=== PATIENT | male | born 1995 | race Caucasian/White ===

== ENCOUNTER 2016-08-23 14:58 | Inpatient (IN) | payer OTHER ==
[~2016-08-23] VITALS: Ht 172.7 cm; Wt 62.5 kg
[2016-08-23 17:48] VITALS: Ht 172.7 cm; Wt 62.5 kg
[2016-08-23 18:01] VITALS: BP 140/79; PULSE 80; RESP 18
[2016-08-23] MEDS ORDERED: morphine 2 MG INJ IV PRN (19:00)
[2016-08-23] MEDS ORDERED: ACETAMINOPHEN 325 MG TAB PO PRN (19:00)
[2016-08-23] MEDS ORDERED: ONDANSETRON 4 MG INJ IV PRN (19:00)
--- NOTE | 2016-08-23 19:35 | QN ---
Documentation Comment SBO ABD PAIN PLAN PER CPOE NOHEMI PITTS MD Aug 23, 2016 19:35
[2016-08-23 20:00] VITALS: BP 130/61; PULSE 101; RESP 20
[2016-08-23] MEDS: DEXTROSE 5%-0.9% NACL 1,000 ML IV SCH (20:25)
[2016-08-23] MEDS: CEFTRIAXONE 1 GM/50 ML (PMX) 50 ML IVPB SCH (20:28)
[2016-08-23 21:02] VITALS: BP 130/61; RESP 20
[2016-08-24] MEDS: DEXTROSE 5%-0.9% NACL 1,000 ML IV SCH ×4 (05:34→23:49)
[2016-08-24 06:15] LABS: POTASSIUM 3.6 mmol/L (3.5-5.1)
[2016-08-24 06:18] LABS: CREATININE 0.94 mg/dl (0.61-1.24)
[2016-08-24 06:19] LABS: CALCIUM 8.6 mg/dl (8.4-10.2)
[2016-08-24] MEDS: PANTOPRAZOLE 40 MG INJ IV SCH (06:27)
[2016-08-24 06:36] LABS: BASOPHILS % 0.1 % (0.0-2.0); EOSINOPHILS # 0.2 10^3/ul (0.0-0.5); EOSINOPHILS % 2.5 % (0.0-7.0); HEMATOCRIT 41.3 % (42.0-52.0); HEMOGLOBIN 14.2 g/dl (14.0-18.0); LYMPHOCYTES % 15.4 % (15.0-51.0); MEAN CORPUSCULAR HGB CONC 34.3 g/dl (32.0-37.0); MEAN CORPUSCULAR VOLUME 87.5 fl (82.0-101.0); MONOCYTE # 0.4 10^3/ul (0.3-0.9); MONOCYTES % 6.3 % (0.0-11.0); NEUTROPHIL # 4.8 10^3/ul (1.6-7.5); NEUTROPHILS % 75.7 % (39.0-77.0); PLATELET COUNT 165 10^3/UL (140-440); RED BLOOD COUNT 4.72 10^6/ul (4.70-6.10); RED CELL DISTRIBUTION WIDTH 13.2 % (11.5-14.5); UNCORRECTED WBC 6.4 10^3/ul (4.8-10.8); WHITE BLOOD COUNT 6.4 10^3/ul (4.8-10.8)
[2016-08-24 06:56] LABS: CONDITION 1
--- NOTE | 2016-08-24 07:57 | HP ---
DATE OF ADMISSION: 08/23/2016 HISTORY OF PRESENT ILLNESS: A young male who has no significant past medical history ____ presented with abdominal pain to [facility]. The patient ____ abdomen shows mild gaseous distention of the small bowel compatible with an ileus. Followup was recommended. The patient also has moder ate retained stool within the colon. The patient has a CT abdomen and pelvis, shows fluid-filled, d istended loops of bowel ____ throughout the abdominopelvic cavity. Appendix is not visualized, alth ough no periappendiceal inflammation changes were seen. No mass or adenopathy. A 3 mm gallbladder polyp noted. The patient received IV fluid at [facility], and patient's blood pressure 139 /99 at [facility]. WBC 6.6, hematocrit 48.7. The patient has sodium 130, potassium 4.6, B UN 6, ____ 2.6, calcium 10.4. The patient is going to be monitored for further management. PAST MEDICAL HISTORY: Negative. ALLERGY HISTORY: NEGATIVE. FAMILY HISTORY: Negative. SOCIAL HISTORY: Negative. MEDICATIONS AT HOME: None. REVIEW OF SYSTEMS: HEENT: Unremarkable. RESPIRATORY: Unremarkable. CARDIOVASCULAR: Unremarkable. ABDOMEN: As mentioned above. No hematemesis, melena. EXTREMITIES: Unremarkable. CENTRAL NERVOUS SYSTEM: Unremarkable. PHYSICAL EXAMINATION: GENERAL: The patient is awake, alert. VITAL SIGNS: Stable. HEENT: Head is atraumatic, normocephalic. Pupils equal, reactive to light. NECK: Supple. No JVD. LUNGS: Clear. CARDIOVASCULAR: S1, S2 normal. No rub or murmur. ABDOMEN: Soft. Bowel sounds are positive. Tenderness, mild, on deep palpation. EXTREMITIES: No cyanosis, clubbing, edema. CENTRAL NERVOUS SYSTEM: The patient is awake, alert. No focal deficit. LABORATORY DATA: As mentioned above. IMPRESSION: 1. Abdominal pain. 2. Ileus. 3. Early small-bowel obstruction. PLAN: Keep him n.p.o., IV fluid, antibiotic empiric, Dr. Vernon for surgical consultation, PPI, pa in medication, Zofran, SCD to the legs. Orders were done. Dictated By: NOHEMI PITTS MD BS/NTS Conf#: [id number] DID#: [id number]
[2016-08-24 08:34] VITALS: BP 116/58; RESP 16
[2016-08-24] MEDS: CEFTRIAXONE 1 GM/50 ML (PMX) 50 ML IVPB SCH (08:50)
--- NOTE | 2016-08-24 11:25 | RADRPT ---
PROCEDURE: XR Abdomen 2 Views. CLINICAL INDICATION: Abdominal pain, small bowel obstruction. TECHNIQUE: AP supine and upright abdomen x-ray. COMPARISON: None. FINDINGS: Air and stool are seen scattered within the colon. A few air-filled, dilated loops of small bowel m easuring up to approximately 3.1 cm are identified in the left mid abdomen. No organomegaly is obser katerina. No abnormal calculi are seen. The osseous structures are intact. IMPRESSION: A few air-filled, dilated loops of small bowel measuring up to 3.1 cm in the left mid abdomen. Find ings could reflect small bowel ileus or obstruction. If further characterization is needed CTA is r ecommended. RPTAT: AA .Jayro Piedra MD, MD Date Time Electronically viewed and signed by .Jayro Piedra MD, on 08/24/2016 11:25 .P/
[2016-08-24 19:48] VITALS: BP 137/67; RESP 20
--- NOTE | 2016-08-24 20:23 | PN ---
Date/Time of Note Date/Time of Note DATE: 08/24/16 TIME: 20:22 Assessment/Plan VTE Prophylaxis VTE Prophylaxis Intervention: other Lines/Catheters IV Catheter Type (from Nrs): Peripheral IV Urinary Cath still in place: No Assessment/Plan Chief Complaint/Hosp Course IMPRESSION: 1. Abdominal pain. 2. Ileus. 3. Early small-bowel obstruction. plan dr stewart called iv fluid Problems: Subjective 24 Hr Interval Summary Cardiovascular: no complaints Gastrointestinal: No pain Genitourinary: no complaints Exam/Review of Systems Vital Signs Vitals Vital Signs Date Time Temp Pulse Resp B/P Pulse Ox O2 Delivery O2 Flow Rate FiO2 08/24/16 19:48 98.1 52 20 137/67 97 08/23/16 20:00 Room Air Intake and Output 08/23/16 08/23/16 08/24/16 15:00 23:00 07:00 Intake Total 50 ml 1000 ml Balance 50 ml 1000 ml Exam Neck: supple Respiratory: clear to auscultation Cardiovascular: regular rate and rhythm Gastrointestinal: bowel sounds (+) Results Result Diagram: 08/24/16 0451 08/24/16 0451 Results 24 hrs Laboratory Tests Test 08/24/16 04:51 Anion Gap 12 Basophils # 0.0 Basophils % 0.1 Blood Morphology Comment Blood Urea Nitrogen 9 Calcium Level 8.6 Carbon Dioxide Level 32 H Chloride Level 102 Creatinine 0.94 Eosinophils # 0.2 Eosinophils % 2.5 Glucose Level 99 Hematocrit 41.3 L Hemoglobin 14.2 Lymphocytes # 1.0 Lymphocytes % 15.4 Mean Corpuscular Hemoglobin 30.0 Mean Corpuscular Hemoglobin Concent 34.3 Mean Corpuscular Volume 87.5 Mean Platelet Volume 11.0 H Monocytes # 0.4 Monocytes % 6.3 Neutrophils # 4.8 Neutrophils % 75.7 Nucleated Red Blood Cells # 0.0 Nucleated Red Blood Cells % 0.0 Platelet Count 165 Potassium Level 3.6 Red Blood Count 4.72 Red Cell Distribution Width 13.2 Sodium Level 142 White Blood Count 6.4 Medications Medications Current Medications Pantoprazole 40 mg 40 mg DAILY@06 IV Last administered on 08/24/16 06:27; Admin Dose 40 MG; Start 08/24/16 at 06:00 Ceftriaxone Sodium (Rocephin) 50 ml @ 100 mls/hr DAILY IVPB Last administered on 08/24/16 08:50; Admin Dose 100 MLS/HR; Start 08/23/16 at 20:00 Morphine Sulfate (morphine) 2 mg Q4H PRN IV PAIN; Start 08/23/16 at 19:00 Ondansetron HCl (Zofran Inj) 4 mg Q6H PRN IV NAUSEA AND/OR VOMITING; Start at 19:00 Acetaminophen 650 mg 650 mg Q6H PRN PO PAIN AND OR ELEVATED TEMP; Start at 19:00 Dextrose/Sodium Chloride (D5-NS) 1,000 ml @ 125 mls/hr Q8H IV Last administered on 08/24/16 13:38; Admin Dose 125 MLS/HR; Start 08/23/16 at 21:00 NOHEMI PITTS MD Aug 24, 2016 20:23
--- NOTE | 2016-08-24 23:17 | PN ---
Date/Time of Note Date/Time of Note DATE: 08/24/16 TIME: 23:17 Assessment/Plan Lines/Catheters IV Catheter Type (from [facility]): Peripheral IV Kerr in Place (from [facility]): No Assessment/Plan Chief Complaint/Hosp Course 1. Abdominal pain improved 2. Ileus of unknown etiology has improved and patient is having bowel function. Differential diagnosis includes gastroenteritis versus other. -Clear liquid diet and advance as tolerated Thank you, Problems: Subjective 24 Hr Interval Summary No fevers or chills. No nausea or vomiting. No chest pain or shortness of breath. No visual or neurologic changes. Pain improved. Having bowel function. No dysuria. Bloating improved. Exam/Review of Systems Vital Signs Vitals Vital Signs Date Time Temp Pulse Resp B/P Pulse Ox O2 Delivery O2 Flow Rate FiO2 08/25/16 08:15 97.6 60 22 106/54 98 08/23/16 20:00 Room Air Intake and Output 08/24/16 08/24/16 08/25/16 15:00 23:00 07:00 Intake Total 2505 ml Output Total 900 ml 2 ml Balance -900 ml 2503 ml Exam Constitutional: alert, oriented, No distress Psych: nl mood/affect, no complaints, No anxiety, No confusion Head: atraumatic, normocephalic Eyes: EOMI, PERRL, nl conjunctiva, No icteric ENMT: mucosa pink and moist, nl external ears & nose, nl lips & teeth Neck: non-tender, supple, No jvd Respiratory: normal air movement, No congested cough, No labored breathing Cardiovascular: regular rate and rhythm, No edema Gastrointestinal: non-tender, soft, No distended, No rebound or guarding Genitourinary - Male: nl penis, nl scrotum Musculoskeletal: nl extremities to inspection, nl gait and stance, No joint tenderness Extremities: normal pulses, No calf tenderness, No cyanosis Neurological: nl mental status, nl speech, nl strength Skin: nl turgor, No diaphoresis, No rash or lesions Lymph: nl lymph nodes Results Result Diagram: 08/25/16 0435 08/25/16 0435 ANALILIA VILLARREAL MD Aug 24, 2016 23:17
[2016-08-25 05:42] LABS: BASOPHILS % 0.6 % (0.0-2.0); EOSINOPHILS # 0.2 10^3/ul (0.0-0.5); HEMATOCRIT 37.8 % (42.0-52.0); HEMOGLOBIN 12.9 g/dl (14.0-18.0); LYMPHOCYTES # 1.5 10^3/ul (0.8-2.9); LYMPHOCYTES % 38.1 % (15.0-51.0); MEAN CORPUSCULAR HEMOGLOBIN 29.8 pg (29.0-33.0); MEAN CORPUSCULAR HGB CONC 34.1 g/dl (32.0-37.0); MEAN CORPUSCULAR VOLUME 87.5 fl (82.0-101.0); MEAN PLATELET VOLUME 10.7 fl (7.4-10.4); MONOCYTE # 0.3 10^3/ul (0.3-0.9); MONOCYTES % 8.2 % (0.0-11.0); NEUTROPHIL # 1.9 10^3/ul (1.6-7.5); NEUTROPHILS % 48.1 % (39.0-77.0); PLATELET COUNT 140 10^3/UL (140-440); RED BLOOD COUNT 4.32 10^6/ul (4.70-6.10); RED CELL DISTRIBUTION WIDTH 13.2 % (11.5-14.5); UNCORRECTED WBC 3.9 10^3/ul (4.8-10.8); WHITE BLOOD COUNT 3.9 10^3/ul (4.8-10.8)
[2016-08-25 06:11] LABS: CONDITION 1; LH ANALYZER COMMENTS 1; SUSPECT 1
[2016-08-25 06:17] LABS: ALBUMIN 3.4 g/dl (3.3-4.9)
[2016-08-25 06:18] LABS: POTASSIUM 4.4 mmol/L (3.5-5.1)
[2016-08-25 06:20] LABS: BILIRUBIN,INDIRECT 0.4 mg/dl (0-1.1); BILIRUBIN,TOTAL 0.4 mg/dl (0.2-1.3); CREATININE 0.94 mg/dl (0.61-1.24)
[2016-08-25 06:21] LABS: ALBUMIN/GLOBULIN RATIO 1.3; CALCIUM 8.6 mg/dl (8.4-10.2)
[2016-08-25] MEDS: PANTOPRAZOLE 40 MG INJ IV SCH (06:23)
[2016-08-25 08:15] VITALS: BP 106/54; RESP 22
[2016-08-25] MEDS: CEFTRIAXONE 1 GM/50 ML (PMX) 50 ML IVPB SCH (08:19)
[2016-08-25] MEDS: DEXTROSE 5%-0.9% NACL 1,000 ML IV SCH (08:22)
--- NOTE | 2016-08-25 12:29 | PN ---
Date/Time of Note Date/Time of Note DATE: 08/25/16 TIME: 12:27 Assessment/Plan VTE Prophylaxis VTE Prophylaxis Intervention: SCD's Lines/Catheters IV Catheter Type (from Nrsg): Peripheral IV Urinary Cath still in place: No Assessment/Plan Assessment/Plan IMPRESSION: 1. Abdominal pain. 2. Ileus. 3. Early small-bowel obstruction. plan: pain controlled KUB today if negative will advance to soft diet if tolerate po diet then possibel d/c Subjective 24 Hr Interval Summary Free Text/Dictation pt stable, pain controlled, Exam/Review of Systems Vital Signs Vitals Vital Signs Date Time Temp Pulse Resp B/P Pulse Ox O2 Delivery O2 Flow Rate FiO2 08/25/16 08:15 97.6 60 22 106/54 98 08/23/16 20:00 Room Air Intake and Output 08/24/16 08/24/16 08/25/16 15:00 23:00 07:00 Intake Total 2505 ml Output Total 900 ml 2 ml Balance -900 ml 2503 ml Results Result Diagram: 08/25/16 0435 08/25/16 0435 Results 24 hrs Laboratory Tests Test 08/25/16 04:35 Alanine Aminotransferase (ALT/SGPT) 23 Albumin 3.4 Albumin/Globulin Ratio 1.30 Alkaline Phosphatase 47 Anion Gap 11 Aspartate Amino Transf (AST/SGOT) 28 Basophils # 0.0 Basophils % 0.6 Blood Morphology Comment Blood Urea Nitrogen 6 L Calcium Level 8.6 Carbon Dioxide Level 30 Chloride Level 107 Creatinine 0.94 Direct Bilirubin 0.00 Eosinophils # 0.2 Eosinophils % 5.0 Globulin 2.60 Glucose Level 88 Hematocrit 37.8 L Hemoglobin 12.9 L Indirect Bilirubin 0.4 Lymphocytes # 1.5 Lymphocytes % 38.1 Mean Corpuscular Hemoglobin 29.8 Mean Corpuscular Hemoglobin Concent 34.1 Mean Corpuscular Volume 87.5 Mean Platelet Volume 10.7 H Monocytes # 0.3 Monocytes % 8.2 Neutrophils # 1.9 Neutrophils % 48.1 Nucleated Red Blood Cells # 0.0 Nucleated Red Blood Cells % 0.0 Platelet Count 140 Potassium Level 4.4 Red Blood Count 4.32 L Red Cell Distribution Width 13.2 Sodium Level 144 Total Bilirubin 0.4 Total Protein 6.0 L White Blood Count 3.9 #L Medications Medications Current Medications Pantoprazole 40 mg 40 mg DAILY@06 IV Last administered on 08/25/16 06:23; Admin Dose 40 MG; Start 08/24/16 at 06:00 Ceftriaxone Sodium (Rocephin) 50 ml @ 100 mls/hr DAILY IVPB Last administered on 08/25/16 08:19; Admin Dose 100 MLS/HR; Start 08/23/16 at 20:00 Morphine Sulfate (morphine) 2 mg Q4H PRN IV PAIN; Start 08/23/16 at 19:00 Ondansetron HCl (Zofran Inj) 4 mg Q6H PRN IV NAUSEA AND/OR VOMITING; Start at 19:00 Acetaminophen 650 mg 650 mg Q6H PRN PO PAIN AND OR ELEVATED TEMP; Start at 19:00 Dextrose/Sodium Chloride (D5-NS) 1,000 ml @ 125 mls/hr Q8H IV Last administered on 08/25/16 08:22; Admin Dose 125 MLS/HR; Start 08/23/16 at 21:00 ABHILASH LOVE MD Aug 25, 2016 12:29
[2016-08-25] MEDS ORDERED: METO10TA92 PO (12:30)
--- NOTE | 2016-08-25 12:30 | PDOCDIS ---
Discharge Instructions CONDITION Patient Condition: Good HOME CARE INSTRUCTIONS: Special Diet: soft diet ACTIVITY: Activity Restrictions: Slowly Increase Activity Rest between Activity Avoid heavy lifting Avoid Heavy Housework FOLLOW UP/APPOINTMENTS Appointments follow up with his own PMD through HMO Insurance in 1-2 week. Follow up with as outpatient in 2-3 week after discharge ABHILASH LOVE MD Aug 25, 2016 12:30
--- NOTE | 2016-08-25 14:46 | PN ---
Date/Time of Note Date/Time of Note DATE: 08/25/16 TIME: 14:46 Assessment/Plan Lines/Catheters IV C[facility]ter Type (from [facility]): Peripheral IV Kerr in Place (from [facility]): No Assessment/Plan Chief Complaint/Hosp Course 1. Abdominal pain improved 2. Ileus of unknown etiology has improved and patient is having bowel function. Differential diagnosis includes gastroenteritis versus other. -Clear liquid diet and advance as tolerated 3. Anemia probably dilutional -Outpatient follow-up with primary Thank you, Problems: Subjective 24 Hr Interval Summary No fevers or chills. No nausea or vomiting. No chest pain or shortness of breath. No visual or neurologic changes. Pain improved. Having bowel function. No dysuria. Bloating improved. Exam/Review of Systems Vital Signs Vitals Vital Signs Date Time Temp Pulse Resp B/P Pulse Ox O2 Delivery O2 Flow Rate FiO2 08/25/16 08:15 97.6 60 22 106/54 98 08/23/16 20:00 Room Air Intake and Output 08/24/16 08/24/16 08/25/16 15:00 23:00 07:00 Intake Total 2505 ml Output Total 900 ml 2 ml Balance -900 ml 2503 ml Exam Free Text/Dictation Constitutional: alert, oriented, No distress Psych: nl mood/affect, no complaints, No anxiety, No confusion Head: atraumatic, normocephalic Eyes: EOMI, PERRL, nl conjunctiva, No icteric ENMT: mucosa pink and moist, nl external ears & nose, nl lips & teeth Neck: non-tender, supple, No jvd Respiratory: normal air movement, No congested cough, No labored breathing Cardiovascular: regular rate and rhythm, No edema Gastrointestinal: non-tender, soft, No distended, No rebound or guarding Genitourinary - Male: nl penis, nl scrotum Musculoskeletal: nl extremities to inspection, nl gait and stance, No joint tenderness Extremities: normal pulses, No calf tenderness, No cyanosis Neurological: nl mental status, nl speech, nl strength Skin: nl turgor, No diaphoresis, No rash or lesions Lymph: nl lymph nodes Results Result Diagram: 08/25/16 0435 08/25/16 0435 ANALILIA VILLARREAL MD Aug 25, 2016 14:46
--- NOTE | 2016-08-25 18:26 | CONS ---
DATE OF ADMISSION: 08/23/2016 DATE OF CONSULTATION: 08/23/2016 TYPE OF CONSULTATION: Surgical. REFERRING PHYSICIAN: Cosmo Aguilar MD CHIEF COMPLAINT 1. Abdominal pain. 2. Dilated bowel with possible ileus versus obstruction. HISTORY OF PRESENT ILLNESS: Mr. Scotty Ying is a 21-year-old male, otherwise mostly healthy, who presented to [facility] with abdominal pain and bloating, associated with nausea and vomit ing. He denied any fevers or chills. No chest pain or shortness of breath, no visual or neurologic changes. No dysuria. Some loose stool. No dysuria. No trauma or sick contacts. No previous his tory of the same. Over there the patient was found to have on CT scan, dilated bowel with ileus versus obstruction. L abs were mostly within normal. The patient was transferred here for further investigation due to [employer] insurance. PAST MEDICAL HISTORY: 1. Abdominal pain. 2. Dilated bowel with possible ileus versus obstruction. PAST SURGICAL HISTORY: Denies. MEDICATIONS: Denies. ALLERGIES: DENIES. SOCIAL HISTORY: Social ETOH. Marijuana occasionally. No other recreational drugs or tobacco. FAMILY HISTORY: Noncontributory. REVIEW OF SYSTEMS: A 12-point review of systems negative unless addressed in the HPI. PHYSICAL EXAMINATION: VITAL SIGNS: Temperature is 98, pulse 80, blood pressure 140/79. GENERAL: No acute distress, comfortable. HEENT: Pupils equal, reactive. No scleral icterus. Mucous membranes are moist. NECK: Supple. No JVD. CHEST: Normal respiratory effort. HEART: S1, S2 present. ABDOMEN: Soft, minimally tender. No rebound, no guarding, not rigid. EXTREMITIES: No edema. VASCULAR: Cap refill less than 2 seconds. NEUROLOGIC: Alert, oriented, moves all 4 extremities grossly. LABORATORY AND RADIOGRAPHIC: As per chart and HPI. ASSESSMENT AND PLAN: Mr. Scotty Ying is a 21-year-old male, otherwise healthy. Abdominal pain with differential diagnosis of gastroenteritis versus an obstructive pathology, which I doubt, versus ileus of unknown etiology. Continue close observation, may consider small- bowel f ollow through. However, he seems like he is starting to have bowel function at this time. Thank you very much for consulting me in this patient's care. Dictated By: ANALILIA ABRAHAM/NTS Conf#: [id number] [facility]#: [id number]
--- NOTE | 2016-08-25 20:53 | RADRPT ---
PROCEDURE: XR Abdomen. CLINICAL INDICATION: sbo TECHNIQUE: AP abdomen x-ray. COMPARISON: None. FINDINGS: The bowel gas pattern is normal. There is no evidence of obstruction. There are no abnormal calcific ations overlying the urinary tracts. The osseus structures are unremarkable. IMPRESSION: Unremarkable abdomen radiograph. No evidence of small bowel obstruction. RPTAT:AAJJ Physician Cal Date Time Electronically viewed and signed by Physician Cal on 08/25/2016 20:53 SADE/
--- NOTE | 2016-08-26 16:48 | DS ---
DATE OF ADMISSION: 08/23/2016 DATE OF DISCHARGE: 08/25/2016 FINAL DISCHARGE DIAGNOSES: 1. Small-bowel obstruction. 2. Intractable abdominal pain secondary to a small-bowel obstruction. 3. History of marijuana use. CONSULTATIONS DONE DURING THIS HOSPITALIZATION: General surgery consult, Dr. Calixto Vernon. HOSPITAL COURSE: This is a 21-year-old male who has no significant past medical history. He has be en intermittently using marijuana, presented with abdominal pain, nausea, vomiting. The patient had a CT abdomen and pelvis done in the emergency room that showed a small-bowel obstruction. He was k ept n.p.o., gets admitted to the med/surg floor. He was given IV fluids. He had a serial abdominal KUB series done which shows negative for any obstruction and after that he advanced his diet to a s oft diet. He was tolerating the diet very well, when after getting the tolerance of a diet he is get ting discharged to home. DISPOSITION: To home. DISCHARGE CONDITION: Stable and improved compared to admission. DISCHARGE ACTIVITIES: As tolerated, slowly resume to the normal baseline activity. DISCHARGE DIET: Low sodium, low fat, soft consistency diet. DISCHARGE FOLLOWUP AND INSTRUCTIONS 1. The patient is to follow up with his own primary care doctor in 1 to 2 weeks after discharge. 2. He is also advised to follow up with general surgery, Dr. Calixto Vernon, as outpatient 2 to 3 w eeks after discharge. He has been explained about the discharge plan and followup instructions. He understood and verbalized understanding. Dictated By: ABHILASH LOVE MD, KP/LOKI Conf#: [id number] DID#: [id number]
== END 2016-08-25 16:10 | disposition home or self-care (01) | DRG 390 ==
LOC: PP2 17:23
PROVIDERS: ADMIT Internal Medicine Nephrology; ATTEND Internal Medicine Nephrology
DX: K56.60 Unspecified intestinal obstruction (principal); D64.9 Anemia, unspecified
CPT/HCPCS: 74010; 80048; 80053; 85025; 87075; 87081; C9113; J0696; J7042

== ENCOUNTER 2019-01-17 12:35 | Emergency (ER) | payer OTHER ==
[~2019-01-17] VITALS: Ht 172.7 cm; Wt 60.1 kg
[~2019-01-17 12:35] MED LIST: METO10TA92 PO
[2019-01-17 12:39] VITALS: BP 135/67; PULSE 119; RESP 22; Ht 172.7 cm; Wt 60.1 kg
[2019-01-17] MEDS ORDERED: LORA-441 PO (12:59)
--- NOTE | 2019-01-17 13:07 | ERD ---
ER Documentation Chief Complaint Chief Complaint lump to right side of throat HPI 23-year-old male presents for foreign body sensation in the neck for many years. He states that he has a symptoms on and off. He does have a history of anxiety and believes that could be due to his anxiety. He states that he had prior similar symptoms and when his anxiety resolved the neck foreign body sensation also resolved on its own. The foreign body sensation is noted to be midline of the neck. Patient is currently on Lexapro for anxiety which she states he is taking every day. He does note however that every once in a while his anxiety will increase. Denies any suicidal ideation currently. No other modifying factors noted, no other treatment tried at home. ROS All systems reviewed and are negative except as per history of present illness. Medications Home Meds Active Scripts Lorazepam* (Ativan*) 0.5 Mg Tablet, 0.5 MG PO Q8 PRN for ANXIETY, #10 TAB Prov:LEO VILLANUEVA DO 01/17/19 Metoclopramide* (Reglan*) 10 Mg Tablet, 10 MG PO Q6H PRN for NAUSEA AND OR VOMITING, #30 TAB Prov:ABHILASH LOVE MD 08/25/16 Allergies Allergies: Coded Allergies: No Known Allergy (Unverified , 08/23/16) PMhx/Soc History of anxiety, currently on Lexapro History of Surgery: No Anesthesia Reaction: No Hx Neurological Disorder: No Hx Respiratory Disorders: No Hx Cardiac Disorders: No Hx Psychiatric Problems: No Hx Miscellaneous Medical Probl: No Hx Alcohol Use: Yes (BEER EVERYDAY X 2 WEEKS) Hx Substance Use: Yes (MARIJUANA) Hx Tobacco Use: No Physical Exam Vitals Vital Signs Date Temp Pulse Resp B/P (MAP) Pulse Ox O2 O2 Flow FiO2 Time Delivery Rate 01/17/19 99.1 119 22 135/67 96 12:39 (89) Repeat heart rate 90 Physical Exam Const: Appears mildly anxious Head: Atraumatic Eyes: Normal Conjunctiva ENT: Normal External Ears, Nose and Mouth. Neck: Full range of motion. No meningismus. No palpable neck mass. Resp: Clear to auscultation bilaterally, no use of accessory muscles, patient speaking in full sentences Cardio: Regular rate and rhythm, no murmurs Abd: Soft, non tender, non distended. Normal bowel sounds Skin: No petechiae or rashes Ext: No cyanosis, or edema Neur: Awake and alert Psych: Normal Mood and Affect Procedures/MDM Medical Decision Making: Differential diagnosis includes but not limited to neck foreign body, neck mass, anxiety Patient appeared well on physical exam Patient speaking in full sentences, he does appear a little bit anxious on examination. There is no palpable masses on the neck. Patient symptoms likely due to anxiety. Therefore no imaging felt to be necessary. Prescription(s): Patient given prescription for Ativan short course low-dose, patient advised follow-up with your psychiatrist. Patient advised to follow up with PCP in 1-2 days. Patient advised to return to ED for new or worsening symptoms. Patient stable on discharge from the ED. Disclaimer: Inadvertent spelling and grammatical errors are likely due to EHR/dictation software use and do not reflect on the overall quality of patient care. Also, please note that the electronic time recorded on this note does not necessarily reflect the actual time of the patient encounter. Departure Diagnosis: Primary Impression: Sensation of foreign body in throat Additional Impression: Anxiety Condition: Fair Patient Instructions: Your Body's Response to Anxiety Referrals: [facility] YOU HAVE RECEIVED A MEDICAL SCREENING EXAM AND THE RESULTS INDICATE THAT YOU DO NOT HAVE A CONDITION THAT REQUIRES URGENT TREATMENT IN THE EMERGENCY DEPARTMENT. FURTHER EVALUATION AND TREATMENT OF YOUR CONDITION CAN WAIT UNTIL YOU ARE SEEN IN YOUR DOCTORS OFFICE WITHIN THE NEXT 1-2 DAYS. IT IS YOUR RESPONSIBILITY TO MAKE AN APPOINTMENT FOR FOLOW-UP CARE. IF YOU HAVE A PRIMARY DOCTOR --you should call your primary doctor and schedule an appointment IF YOU DO NOT HAVE A PRIMARY DOCTOR YOU CAN CALL OUR PHYSICIAN REFERRAL HOTLINE AT IF YOU CAN NOT AFFORD TO SEE A PHYSICIAN YOU CAN CHOSE FROM THE FOLLOWING [facility] [address] [facility] [address] [facility]. [facility] [address] [facility] [address] [facility] [address] [facility]. [facility]. [address] Additional Instructions: Call your primary care doctor TOMORROW for an appointment during the next 1-2 days.See the doctor sooner or return here if your condition worsens before your appointment time. LEO VILLANUEVA DO Jan 17, 2019 13:07
== END 2019-01-17 13:18 | disposition home or self-care (01) ==
LOC: FTE 12:35
DX: R09.89 Other specified symptoms and signs involving the circulatory and respiratory systems (principal); F41.9 Anxiety disorder, unspecified
CPT/HCPCS: 99283

== ENCOUNTER 2019-04-20 03:14 | Emergency (ER) | payer OTHER ==
[~2019-04-20] VITALS: Ht 172.7 cm; Wt 61.5 kg
[~2019-04-20 03:14] MED LIST changes: +ALBU8.5H8 INH; +AMOX1TAB9 PO; +GUAI120S25 PO; +IBUP-1542 PO; +LORA-441 PO
[2019-04-20 03:16] VITALS: BP 133/64; PULSE 69; RESP 16; Ht 172.7 cm; Wt 61.5 kg
[2019-04-20] MEDS ORDERED: CA GLUCONATE (GM) 10% 10ML INJ ONE (09:06)
== END 2019-04-20 04:28 | disposition home or self-care (01) ==
LOC: FTE 03:14
DX: M94.0 Chondrocostal junction syndrome [Tietze] (principal); K04.7 Periapical abscess without sinus
CPT/HCPCS: 99283; J0610